=== PATIENT | female | born 1955 | race African-American/Black ===

== ENCOUNTER 2017-02-11 12:23 | Inpatient (IN) | payer BC, OTHER ==
--- NOTE | ~2017-02-11 | DS ---
Discharge Summary [facility] [address] [place]. [address] NAME: OCHOA VIVEROS : 55 STATUS : DIS IN PAT#: [id number] AGE: 61 ADM/REG DATE : 02/11/17 MR#: [id number] REPORT SERV DATE: 02/14/17 DICTATED BY: CHUNG REDDING DATE: 02/14/17 REPORT STATUS : Draft TRANSCRIBED BY: MODL DATE: 02/14/17 ADMISSION DATE: 02/11/2017 DISCHARGE DATE: 02/14/2017 DISCHARGE DIAGNOSES: 1. Acute pulmonary embolus, bilateral, right greater than left. 2. Active breast cancer. 3. Neutropenia related to ongoing chemotherapy. 4. Hypertension. DISCHARGE MEDICATIONS: Lovenox 60 mg subcutaneously every 12 hours, prescription written for this, a long-term therapy. Morphine sustained release 60 mg every 12 hours. Tylenol 500 mg twice a day p.r.n. for fever. Chemotherapy per [facility] on Thursday. CONSULTATIONS DURING THIS ADMISSION: [facility], Dr. Danis Enriquez. HISTORY OF PRESENT ILLNESS: This is a pleasant 61-year-old female who presented with increasing shortness of breath and decreased exercise tolerance. Please see the initial H and P of Dr. Casey Valencia. This patient was admitted to the Hospitalist Service for further evaluation and treatment. Initially, she had been placed on heparin drip. Lab work was ordered and followed. Given her normal renal function, she was switched over to Lovenox and heparin drip was able to be discontinued. She tolerated this medications switch fine. Her symptoms of shortness of breath began to improve. Her activity intolerance was somewhat better. She was seen by [facility] which agreed with the Lovenox for long-term therapy and she was felt safe for discharge to home with outpatient followup with [facility] on Monday, February 20, 2017, with lab work and probable resumption of chemotherapy. PROCEDURES AND IMAGING DURING THIS ADMISSION: CTA of the chest showing acute right-sided lobar and segmental pulmonary emboli and very low quantity of subsegmental left lower lobe pulmonary emboli and the patient was in agreement with the plan above described going forward. Questions were answered at bedside. PARAG/SHERRY Chung Redding NP / [id number] CC: Tricia Mir M.D. NO PCP
--- NOTE | ~2017-02-11 | HP ---
History And Physical [place] [id number] [facility] [place]. [address] NAME: OCHOA VIVEROS : 55 STATUS : ADM Thomas PAT#: [id number] AGE: 61 ADM/REG DATE : 02/11/17 MR#: [id number] REPORT SERV DATE: 02/12/17 DICTATED BY: ADRIAN ARVIZU DATE: 02/11/17 REPORT STATUS : Draft TRANSCRIBED BY: MODCarlitos DATE: 02/11/17 DATE OF ADMISSION: 02/11/2017 CHIEF COMPLAINT: Shortness of breath with decreased exercise tolerance. HISTORY OF PRESENT ILLNESS: The patient is a 61-year-old female with history of metastatic breast cancer under chemotherapy with Dr. Danis Enriquez, who presents after having shortness of breath on exertion for approximately one week. The patient is a 61-year-old female with past medical history of metastatic breast cancer to lung, additionally CKD, anemia, who recalled after one week ago, was going to the [employer] class for strength training, had noted that she was extremely dyspneic on exertion, thought this was slightly unusual but she has had these episodes approximately four years ago, tried to overcome this, however, symptoms did not resolve over the last 5 days. Symptoms have been constant, moderate severity without pain or radiating symptoms but noted for shortness of breath, decreased oxygen reserve even with talking, symptoms worsening with exertion and talking episodes, relieved by rest and taking breaks. The patient was unclear what was going on, so she came into the emergency room for further evaluation. The patient denied any chest pain. Did have fevers. No diarrhea or constipation. No irregular swelling but does have a chronic band on her hand for compression stocking for history of lymph node dissection; left-sided mastectomy; additionally wears compression stockings at night, has not noticed any irregularities on these. REVIEW OF SYSTEMS: For additional review of systems: GENERAL: Noted for fever, but no chills. EYES: No eye pain or visual changes. ENT: No sore throat or congestion. NEUROLOGIC: No headache or confusion. SKIN: No rashes or bruising. RESPIRATORY: Does have shortness of breath and dyspnea on exertion. CV: No chest pain or palpitations. GI: No nausea, vomiting, or bloody stools. : No hematuria or dysuria. MUSCULOSKELETAL: No myalgias or arthralgias above baseline. ENDOCRINE: Mild increased fatigue. No polyuria. HEMATOLOGIC: No bleeding or bruising. IMMUNOLOGIC: No rhinorrhea. PSYCHIATRIC: No anxiety or confusion. PAST MEDICAL HISTORY: History of malignant pleural effusions, hypertension, anemia, inflammatory breast cancer with adenocarcinoma, VATS procedure, hypertension, tachypnea, and metastasis to the lung. SOCIAL HISTORY: Single. Quit smoking when she was 20 years old. Rare social drinker. Was History And Physical [address] [address] NAME: OCHOA VIVEROS : 55 STATUS : ADM Thomas PAT#: [id number] AGE: 61 ADM/REG DATE : 02/11/17 MR#: [id number] REPORT SERV DATE: 02/12/17 DICTATED BY: ADRIAN ARVIZU DATE: 02/11/17 REPORT STATUS : Draft TRANSCRIBED BY: SHERRY DATE: 02/11/17 a [employer] at [facility]. FAMILY HISTORY: Does have diabetes in family. No breast cancer in family. SURGERIES: Has had VATS procedure. Left mastectomy with 2 C-sections and lymph node dissection, left side port placement. ALLERGIES: NO KNOWN DRUG ALLERGIES. HOME MEDICATIONS: Tylenol; morphine; and chemotherapy every Thursday for three weeks and then one week break for vacation. PHYSICAL EXAMINATION: VITAL SIGNS: The patient's blood pressure is 151/81, temperature 98.5, pulse 99, respirations 18, and O2 saturations 92% on room air. GENERAL: No acute distress, but frail, weak, elderly than stated age. EYES: No scleral icterus. EOMI. ENT: Dry mucous membranes. Tongue midline. RESPIRATORY: Mild polyphonic breath sounds. Decreased basilar breath sounds. CV: Regular rate. No rubs. No pedal edema. Does have left-sided arm edema, lymphedema. GI: Soft, nontender, nondistended. Bowel sounds positive. : Deferred. MUSCULOSKELETAL: Moves all extremities x4. SKIN: Warm, dry. LYMPH: Does have left arm lymphedema. HEME: No bleeding or bruising. NEUROLOGIC: Alert and oriented. Moves all extremities. Pleasant. Normal vocal asha but easily fatigued. PSYCHIATRIC: Appropriate mood and affect. DATA: WBC 2.8, H and H 8.5 and 26.4, MCV 87.7, platelets 287. INR 1.1. BNP 23.2. BMP grossly within normal limits. Troponin negative. PA lateral, pulmonary metastasis similar to recent CT, no acute findings. CTA chest, acute right-sided lobar and segmental pulmonary emboli and a very low quality segmental left lower lobe pulmonary emboli, continued relatively stable pulmonary nodules and upper lobe prominence invasion of the pleural involving several of these possible tiny foci of inner cortical erosion. EKG sinus rhythm with a rate of 95, QTc of 422. ASSESSMENT AND PLAN: 1. Acute pulmonary embolism. 2. Metastatic breast cancer. 3. Hypertension. 4. Anemia. PLAN: 1. Acute PE. Heparin drip currently in the setting of anemia, bicytopenia. We will check History And Physical [address] [address] NAME: OCHOA VIVEROS : 55 STATUS : ADM Thomas PAT#: [id number] AGE: 61 ADM/REG DATE : 02/11/17 MR#: [id number] REPORT SERV DATE: 02/12/17 DICTATED BY: ADRIAN ARVIZU. DATE: 02/11/17 REPORT STATUS : Draft TRANSCRIBED BY: MODCarlitos DATE: 02/11/17 fecal occult blood test. The patient does have a CKD history which may affect which anticoagulation could be used. We will also request Oncology assistance on long-term anticoagulation in this current setting. The patient is clinically having dyspnea with exertion and dyspnea talking. We would like to monitor observation status until medically optimized. 2. Metastatic breast cancer, per Oncology. 3. Hypertension. Monitor current medications. 4. Anemia. Monitor while on heparin drip on treatment for cancer. 5. Mild CKD history. Check fecal occult blood test. DDN/MODL Adrian Arvizu MD / [id number] CC: Manuelito Degroot Jr, MD
[2017-02-11 12:06] LABS: BASOPHILS 1.1 %; BASOPHILS ABSOLUTE 0.03 10/3/uL (0.0-0.16); EOSINOPHILS 2.1 %; EOSINOPHILS ABSOLUTE 0.06 10/3/uL (0.0-0.53); HEMATOCRIT 26.4 % (36.0-48.0); HEMOGLOBIN 8.5 g/dL (12.0-16.0); IMMATURE GRANULOCYTES 0.7 %; IMMATURE GRANULOCYTES ABSOLUTE 0.02 10/3/uL (0.0-0.11); LYMPHOCYTES 24.1 %; LYMPHOCYTES ABSOLUTE 0.68 10/3/uL (0.67-4.30); MANUAL DIFF NO %; MEAN CORPUS HGB CONC 32.2 g/dL (32.0-36.0); MEAN CORPUSCULAR HEMOGLOB 28.2 pg (26.0-34.0); MEAN CORPUSCULAR VOLUME 87.7 fL (80-100); MONOCYTES 1.8 %; MONOCYTES ABSOLUTE 0.05 10/3/uL (0.21-1.20); NEUTROPHILS 70.2 %; NEUTROPHILS ABSOLUTE 1.98 10/3/uL (2.02-8.40); PLATELET COUNT 287 10/3/uL (150-400); RBC DISTRIBUTION WIDTH 16.2 % (12.0-16.0); RED CELL COUNT 3.01 10/6/uL (4.0-5.6); WHITE BLOOD CELLS 2.8 10/3/uL (4.5-10.5)
[2017-02-11 12:17] LABS: INTERNATIONAL NORMAL RATI 1.1 UNITS (-); PROTIME (NOT ORD) 13.9 SEC (12.0-14.5)
[~2017-02-11 12:23] MED LIST: ASABAYER PO; ATV.5 PO; BENTYL20 PO; CALCIUM OTC PO; CHEMO THERAPY; CHEMOTHERAPY IV; DENIES HOME MEDS; DSS PO; DUONEB INH; DURA25 TOP; DURA50 TOP; FLAG500TAB PO; FLU PO; IMOD PO; LEVAQUIN750 MG PO; MIRALAXPKT PO; MSCONT15 PO; NEXIUM40 PO; NORCO1 TA1 PO; OPANA ER15 MG PO; OXYCOD PO; PAIN MEDICATION PO; PCET PO; PEP20 PO; POTASSIUM OTC PO; PR25 PO; PRIN10 PO; PRIN20 PO; PRINZIDE1 TA1 PO; PROTONIX PO; ROXICODONE30 MG PO; THERAPEUTIC PO; XIFAXAN550 MG PO; [UNRECOGNIZED DRUG - OTHER] PO; [UNRECOGNIZED DRUG - REMARK] PO
[2017-02-11 12:28] LABS: CALCIUM, SERUM 8.8 MG/DL (8.5-10.4); CHEST PAIN PROFILE TAT 0 Hrs 28 Mins; CHLORIDE, SERUM 107 MMOL/L (96-112); CREATININE 0.84 MG/DL (0.55-1.02); GFR AFRICAN AMERICAN 87 ML/MIN (>=60); GFR NON AFRICAN AMERICAN 75 ML/MIN (>=60); GLUCOSE, SERUM 88 MG/DL (60-99); POTASSIUM, SERUM 3.6 MMOL/L (3.5-5.3); SODIUM, SERUM 141 MMOL/L (135-148); TROPONIN I <0.02 NG/ML (<0.05)
[2017-02-11 12:29] LABS: BUN (BLOOD UREA NITROGEN) 10 MG/DL (6-23); CO2 (CARBON DIOXIDE) 26 MMOL/L (24-34)
[2017-02-11] MEDS ORDERED: KADIAN60 MG PO (16:37)
[2017-02-11] MEDS ORDERED: ACET500CAP PO (16:37)
[2017-02-11] MEDS ORDERED: CHEMOTHERAPY IV (16:38)
[2017-02-12 05:15] LABS: HEMOGLOBIN 7.9 g/dL (12.0-16.0); MEAN CORPUS HGB CONC 33.3 g/dL (32.0-36.0); MEAN CORPUSCULAR HEMOGLOB 28.8 pg (26.0-34.0); MEAN CORPUSCULAR VOLUME 86.5 fL (80-100); MEAN PLATELET VOLUME 8.6 fL (9.2-13.0); PLATELET COUNT 263 10/3/uL (150-400); RBC DISTRIBUTION WIDTH 15.8 % (12.0-16.0); RED CELL COUNT 2.74 10/6/uL (4.0-5.6)
[2017-02-12 05:17] LABS: HEMATOCRIT 23.7 % (36.0-48.0); WHITE BLOOD CELLS 1.9 10/3/uL (4.5-10.5)
[2017-02-12 05:19] LABS: MANUAL DIFF YES %
[2017-02-12 05:36] LABS: ALBUMIN 2.5 G/DL (3.5-5.0); BUN (BLOOD UREA NITROGEN) 9 MG/DL (6-23); CALCIUM, SERUM 8.6 MG/DL (8.5-10.4); CHLORIDE, SERUM 106 MMOL/L (96-112); CO2 (CARBON DIOXIDE) 24 MMOL/L (24-34); CREATININE 0.82 MG/DL (0.55-1.02); GFR AFRICAN AMERICAN 90 ML/MIN (>=60); GFR NON AFRICAN AMERICAN 77 ML/MIN (>=60); GLUCOSE, SERUM 96 MG/DL (60-99); POTASSIUM, SERUM 4.1 MMOL/L (3.5-5.3); SGOT(AST) 26 U/L (5-40); SGPT(ALT) 20 U/L (5-65); SODIUM, SERUM 141 MMOL/L (135-148); TOTAL BILIRUBIN 0.3 MG/DL (0-1.2); TOTAL PROTEIN 6.7 G/DL (6.0-8.5)
[2017-02-12 05:38] LABS: BASOPHILS 2 %; BASOPHILS ABSOLUTE (CALC) 0.04 10/3/uL (0.0-0.16); EOSINOPHILS 2 %; EOSINOPHILS ABSOLUTE (CALC) 0.04 10/3/uL (0.0-0.53); IMMATURE GRANS ABSOLUTE (CALC) 0.08 10/3/uL (0.0-0.11); LYMPHOCYTES 58 %; METAMYELOCYTES 2 %; MONOCYTES 4 %; MONOCYTES ABSOLUTE (CALC) 0.08 10/3/uL (0.21-1.20); MYELOCYTES 2 %; NEUTROPHILS ABSOLUTE (CALC) 0.57 10/3/uL (2.02-8.40); SEGMENTED NEUTROPHIL (0) 30 %; TOTAL NUCLEATED CELLS 50
[2017-02-12 05:39] LABS: PLATELET ESTIMATE ADQ (ADEQUATE); RBC MORPHOLOGY NORM (NORMAL)
[2017-02-12 05:44] LABS: A/G RATIO 0.6 (0.7-1.9); ALKALINE PHOSPHATASE 95 U/L (45-117); GLOBULIN 4.2 G/DL (2.5-4.1)
[2017-02-12 15:51] LABS: % IRON SAT 12 % (20-50); FERRITIN 432 NG/ML (8-252); IRON BINDING CAPACITY 177 MCG/DL (225-410); IRON, SERUM 21 MCG/DL (35-150)
[2017-02-13 04:17] LABS: HEMATOCRIT 24.7 % (36.0-48.0); MEAN CORPUS HGB CONC 32.4 g/dL (32.0-36.0); MEAN CORPUSCULAR HEMOGLOB 28.1 pg (26.0-34.0); MEAN CORPUSCULAR VOLUME 86.7 fL (80-100); MEAN PLATELET VOLUME 8.9 fL (9.2-13.0); PLATELET COUNT 250 10/3/uL (150-400); RBC DISTRIBUTION WIDTH 15.8 % (12.0-16.0); RED CELL COUNT 2.85 10/6/uL (4.0-5.6); WHITE BLOOD CELLS 2.5 10/3/uL (4.5-10.5)
[2017-02-13 04:23] LABS: MANUAL DIFF YES %
[2017-02-13 06:12] LABS: BAND NEUTROPHILS 2 %; BASOPHILS 1 %; BASOPHILS ABSOLUTE (CALC) 0.03 10/3/uL (0.0-0.16); EOSINOPHILS 1 %; EOSINOPHILS ABSOLUTE (CALC) 0.03 10/3/uL (0.0-0.53); LYMPHOCYTES 51 %; LYMPHOCYTES ABSOLUTE (CALC) 1.28 10/3/uL (0.67-4.30); METAMYELOCYTES 2 %; MONOCYTES 4 %; MYELOCYTES 2 %; NEUTROPHILS ABSOLUTE (CALC) 0.98 10/3/uL (2.02-8.40); PLATELET ESTIMATE ADQ (ADEQUATE); RBC MORPHOLOGY NORM (NORMAL); SEGMENTED NEUTROPHIL (0) 37 %; TOTAL NUCLEATED CELLS 100
[2017-02-14] MEDS ORDERED: LOVENOX60 SC (13:49)
[2017-05-11] MEDS ORDERED: OXYCONTIN30 MG PO (09:29)
[2017-05-11] MEDS ORDERED: KADIANSR50 PO (09:30)
[2017-05-11] MEDS ORDERED: ROXICODONE30 MG PO (09:30)
== END 2017-02-14 15:19 | disposition home or self-care (01) | DRG 176 ==
LOC: ER 12:23 → CDU1 16:45
PROVIDERS: Emergency Medicine; Hospitalist; Student in an Organized Health Care Education/Training Program
DX: I26.99 Other pulmonary embolism without acute cor pulmonale (principal); C78.00 Secondary malignant neoplasm of unspecified lung; C50.919 Malignant neoplasm of unspecified site of unspecified female breast; D70.9 Neutropenia, unspecified; I12.9 Hypertensive chronic kidney disease with stage 1 through stage 4 chronic kidney disease, or unspecified chronic kidney disease; D64.9 Anemia, unspecified; N18.9 Chronic kidney disease, unspecified; Z79.899 Other long term (current) drug therapy; Z87.891 Personal history of nicotine dependence; Z83.3 Family history of diabetes mellitus; Z90.12 Acquired absence of left breast and nipple
CPT/HCPCS: 71020; 71275; 80048; 80053; 82728; 83540; 83550; 83735; 83880; 84484; 85025; 85610; 85730; 93005; 94640; 99285; A9270-GY; Q9967